=== PATIENT | female | born 1950 | race Caucasian/White ===

== ENCOUNTER 2023-11-02 07:43 | Day surgery (SDC) | payer MEDICARE ==
[2023-11-02] MEDS ORDERED: Depo-Medrol 40 MG/ML IM ONE (07:44)
[2023-11-02] MEDS ORDERED: BUPIVACAINE 0.5% VIAL IJ ONE (07:44)
[2023-11-02] MEDS ORDERED: DIPRIVAN 200 MG/20 ML IV ONE (09:10)
[2023-11-02] MEDS ORDERED: Lactated Ringers 1,000 ML IV ONE (09:31)
--- NOTE | 2023-11-02 10:28 | XRAY ---
Indication: Bilateral SI joint injection. Intraoperative fluoroscopy was provided for 15 seconds. 2 digital spot image submitted for interpretation demonstrates posterior needle tips projecting over left and right SI joints. Small amount of contrast injected for needle tip placement. Correlate with intraoperative findings/report.
--- NOTE | 2023-11-02 12:27 | XRAY ---
15 seconds of fluoroscopy was used in surgery for bilateral SI joint injections.
== END 2023-11-02 09:36 | disposition home or self-care (01) ==
LOC: SDC-PAIN 07:43
PROVIDERS: ATTEND Psychiatry & Neurology Pain Medicine
DX: M46.1 Sacroiliitis, not elsewhere classified (principal); E11.9 Type 2 diabetes mellitus without complications
CPT/HCPCS: 01992; 27096; 72202; 77002; 82947; 99100; G0260; J2704; Q9966